=== PATIENT | male | born 1960 ===

== ENCOUNTER 2016-08-28 15:41 | Inpatient (IN) | payer MEDICARE ==
[2016-08-28] MEDS ORDERED: ZOFRAN IV ONE (17:39)
[2016-08-28] MEDS ORDERED: DILAUDID IV ONE (17:39)
[2016-08-28] MEDS ORDERED: NITRO-BID 2% TP ONE (17:40)
--- NOTE | 2016-08-28 17:55 | Emergency Department Report ---
ED Chest Pain HPI - General Chief Complaint: Chest Pain Stated Complaint: CHEST PAIN Time Seen by Provider: 08/28/16 17:28 Source: patient, EMS, old records reviewed (no previous ED record for review) Mode of arrival: Stretcher Limitations: No Limitations - History of Present Illness Initial Comments: 55-year-old male with a past medical history of diabetes, CAD with 8 stents, CABG 4, internal defibrillator, and hyperlipidemia presents to [place] with syncopal episode. Patient states he has had anterior chest pain intermittent throughout the day that was mild to moderate. While standing at [place] talking on the phone and a syncopal episode and bumped the left posterior part of his head on the ground. He complains of worsening chest pain since fall. Plan as aching, constant, reproducible with palpation. Positive so she shortness of breath without nausea, vomiting, or diaphoresis. Per [place] record it states patient has a history of DVT. Patient denies PE or DVT history but does take Coumadin and Plavix for his heart. All his physicians are located around [place] this is his first visit here. Patient is at [place] for psychosis with suicidal intent and just arrived today. Pt was voluntary - Related Data Home Medications Medication Instructions Recorded Confirmed Last Taken Amiodarone [Cordarone 200 MG TAB] 200 mg PO DAILY 08/28/16 08/28/16 08/28/16 Aspirin [Aspirin BABY CHEW TAB] 81 mg PO QDAY 08/28/16 08/28/16 08/28/16 AtorvaSTATin [Lipitor] 80 mg PO QHS 08/28/16 08/28/16 08/27/16 Carvedilol [Coreg] 3.125 mg PO DAILY 08/28/16 08/28/16 08/28/16 Clopidogrel Bisulfate [Plavix] 75 mg PO DAILY 08/28/16 08/28/16 08/28/16 Docusate Sodium [Colace] 100 mg PO DAILY 08/28/16 08/28/16 08/28/16 Furosemide [Lasix] 20 mg PO QDAY 08/28/16 08/28/16 08/28/16 Warfarin [Coumadin] 10 mg PO QDAY 08/28/16 08/28/16 08/28/16 Allergies Allergy/AdvReac Type Severity Reaction Status Date / Time No Known Allergies Allergy Unverified 08/28/16 17:20 ELIJAH score - Elijah Score Age > 65: (0) No Aspirin use within the Past 7 Days: (0) No 3 or more CAD Risk Factors: (1) Yes 2 or more Angina events in past 24 hrs: (1) Yes Known CAD with more than 50% Stenosis: (1) Yes Elevated Cardiac Markers: (0) No ST Deviation Greater than 0.5mm: (0) No ELIJAH Score: 3 ED Review of Systems ROS: Stated complaint: CHEST PAIN Other details as noted in HPI Comment: All other systems reviewed and negative Other: Constitutional: No fevers chills Eyes: No eye pain visual changes ENT: No ear pain or throat pain Neck: Denies pain Respiratory: Denies cough wheezing Cardiovascular: As per HPI GI: Denies abdominal pain, nausea, vomiting, diarrhea : Denies dysuria Musculoskeletal: Denies back pain Skin: Denies rash, lesions, erythema Neurologic: Denies headache, numbness, weakness Psychiatric: Denies suicidal ideation, hallucinations ED Past Medical Hx - Past Medical History Previous Medical History?: Yes Hx Heart Attack/AMI: Yes (stents x 8) Hx Diabetes: Yes - Surgical History Past Surgical History?: Yes Hx Coronary Stent: Yes Hx Internal Defibrillator: Yes Additional Surgical History: CABG - Social History Smoking Status: Current Every Day Smoker Substance Use Type: None - Medications Home Medications: Home Medications Medication Instructions Recorded Confirmed Last Taken Type Amiodarone [Cordarone 200 MG TAB] 200 mg PO DAILY 08/28/16 08/28/16 08/28/16 History Aspirin [Aspirin BABY CHEW TAB] 81 mg PO QDAY 08/28/16 08/28/16 08/28/16 History AtorvaSTATin [Lipitor] 80 mg PO QHS 08/28/16 08/28/16 08/27/16 History Carvedilol [Coreg] 3.125 mg PO DAILY 08/28/16 08/28/16 08/28/16 History Clopidogrel Bisulfate [Plavix] 75 mg PO DAILY 08/28/16 08/28/16 08/28/16 History Docusate Sodium [Colace] 100 mg PO DAILY 08/28/16 08/28/16 08/28/16 History Furosemide [Lasix] 20 mg PO QDAY 08/28/16 08/28/16 08/28/16 History Warfarin [Coumadin] 10 mg PO QDAY 08/28/16 08/28/1617 History ED Physical Exam - General Limitations: No Limitations - Other Other exam information: General: No limitations, patient is alert in no acute distress Head exam: Left posterior scalp pain without laceration or notable hematoma Eyes exam: Normal appearance, pupils equal reactive to light, extraocular movements intact ENT: Moist mucous membrane, normal oropharynx Neck exam: Normal inspection, full range of motion, no meningismus nontender Respiratory exam: Clear to auscultation bilateral, no wheezes, rales, crackles, sternotomy scar noted Cardiovascular: Normal rate and rhythm, normal heart sounds, reproducible anterior chest wall tenderness to palpation Abdomen: Soft, nondistended, and nontender, with normal bowel sounds, no rebound, or guarding Extremity: Full range of motion normal inspection no deformity, no calf tenderness or edema Back: Normal Inspection, full range of motion, no tenderness Neurologic: Alert, oriented x3, cranial nerves intact, no motor or sensory deficit Psychiatric: normal affect, normal mood Skin: Warm, dry, intact ED Course Vital Signs 08/28/16 08/28/16 08/28/16 17:15 17:20 18:15 Temperature Pulse Rate 71 70 67 Respiratory 20 18 20 Rate Blood Pressure 110/83 Blood Pressure 111/83 137/92 [Left] O2 Sat by Pulse 100 99 100 Oximetry 08/28/16 08/28/16 08/28/16 18:23 18:53 22:10 Temperature 98.2 F Pulse Rate 80 Respiratory 18 18 18 Rate Blood Pressure Blood Pressure 125/85 [Left] O2 Sat by Pulse 100 Oximetry - Reevaluation(s) Reevaluation #1: 08/28/16 22:04 tx with ntg, dilaudid 0.5, zofran ED Medical Decision Making - Lab Data Result diagrams: 08/28/16 18:22 08/28/16 18:22 Lab Results 08/28/16 08/28/16 08/28/16 Range/Units 18:22 18:22 18:22 WBC 11.4 H (4.5-11.0) K/mm3 RBC 4.96 (3.65-5.03) M/mm3 Hgb 14.7 (11.8-15.2) gm/dl Hct 43.9 (35.5-45.6) % MCV 88 (84-94) fl MCH 30 (28-32) pg MCHC 34 (32-34) % RDW 12.7 L (13.2-15.2) % Plt Count 264 (140-440) K/mm3 Lymph % (Auto) 12.9 L (13.4-35.0) % [place] % (Auto) 6.8 (0.0-7.3) % Eos % (Auto) 0.8 (0.0-4.3) % Baso % (Auto) 0.4 (0.0-1.8) % Lymph # 1.5 (1.2-5.4) K/mm3 [place] # 0.8 (0.0-0.8) K/mm3 Eos # 0.1 (0.0-0.4) K/mm3 Baso # 0.0 (0.0-0.1) K/mm3 Seg Neutrophils % 79.1 H (40.0-70.0) % Seg Neutrophils # 9.0 H (1.8-7.7) K/mm3 PT 17.7 H (12.2-14.9) Sec. INR 1.46 H (0.87-1.13) APTT 27.6 (24.2-36.6) Sec. D-Dimer 402.65 H (0-234) ng/mlDDU Sodium 136 L (137-145) mmol/L Potassium 4.0 (3.6-5.0) mmol/L Chloride 94.2 L (98-107) mmol/L Carbon Dioxide 25 (22-30) mmol/L Anion Gap 21 mmol/L BUN 21 H (9-20) mg/dL Creatinine 1.1 (0.8-1.5) mg/dL Estimated GFR > 60 ml/min BUN/Creatinine Ratio 19.09 % Glucose 74 L (75-100) mg/dL Calcium 9.6 (8.4-10.2) mg/dL Total Creatine Kinase (55-170) units/L CK-MB (CK-2) (0.0-4.0) ng/mL CK-MB (CK-2) Rel Index (0-4) Troponin T < 0.010 (0.00-0.029) ng/mL 08/28/16 Range/Units 18:22 WBC (4.5-11.0) K/mm3 RBC (3.65-5.03) M/mm3 Hgb (11.8-15.2) gm/dl Hct (35.5-45.6) % MCV (84-94) fl MCH (28-32) pg MCHC (32-34) % RDW (13.2-15.2) % Plt Count (140-440) K/mm3 Lymph % (Auto) (13.4-35.0) % [place] % (Auto) (0.0-7.3) % Eos % (Auto) (0.0-4.3) % Baso % (Auto) (0.0-1.8) % Lymph # (1.2-5.4) K/mm3 [place] # (0.0-0.8) K/mm3 Eos # (0.0-0.4) K/mm3 Baso # (0.0-0.1) K/mm3 Seg Neutrophils % (40.0-70.0) % Seg Neutrophils # (1.8-7.7) K/mm3 PT (12.2-14.9) Sec. INR (0.87-1.13) APTT (24.2-36.6) Sec. D-Dimer (0-234) ng/mlDDU Sodium (137-145) mmol/L Potassium (3.6-5.0) mmol/L Chloride (98-107) mmol/L Carbon Dioxide (22-30) mmol/L Anion Gap mmol/L BUN (9-20) mg/dL Creatinine (0.8-1.5) mg/dL Estimated GFR ml/min BUN/Creatinine Ratio % Glucose (75-100) mg/dL Calcium (8.4-10.2) mg/dL Total Creatine Kinase 97 (55-170) units/L CK-MB (CK-2) 3.5 (0.0-4.0) ng/mL CK-MB (CK-2) Rel Index 3.6 (0-4) Troponin T (0.00-0.029) ng/mL - EKG Data -: EKG Interpreted by Me (nsr 62, septal q waves) - EKG Data When compared to previous EKG there are: previous EKG unavailable - Radiology Data Radiology results: report reviewed, image reviewed ct Head: naf ct Chest angio: naf - Medical Decision Making Pain is reproducible but pt has significant cardiac hx with syncope today. Will admit for further workup. NO stemi, no PE, neg enzymes - Differential Diagnosis mi, pe, unstable angina, chest wall pain Critical Care Time: No Critical care attestation.: If time is entered above; I have spent that time in minutes in the direct care of this critically ill patient, excluding procedure time. ED Disposition Clinical Impression: Hx of heart artery stent, Hx of CABG, Subtherapeutic international normalized ratio (INR), Psychoses Syncope Qualifiers: Syncope type: unspecified Qualified Code(s): R55 - Syncope and collapse Chest pain Qualifiers: Chest pain type: unspecified Qualified Code(s): R07.9 - Chest pain, unspecified Disposition: OP ADMITTED IP TO THIS HOSP Is pt being admited?: Yes Condition: Stable Time of Disposition: 22:00 (Dr Reza/hosp)
--- NOTE | 2016-08-28 18:26 | Cat Scan Report ---
FINAL REPORT PROCEDURE: CT head without contrast. TECHNIQUE: Computerized tomography of the head was performed without contrast material. HISTORY: Syncope, head injury, taking Coumadin. COMPARISON: No prior studies are available for comparison. FINDINGS: The ventricles are normal in size. There may be a tiny old lacunar infarct in the head of the right caudate nucleus. The oro matter and white matter are otherwise normal. There are no mass lesions. There is no intracranial hemorrhage. There are no signs of acute infarction. The calvarium appears intact. There is partial opacification of the left mastoid air cells. The visualized paranasal sinuses are clear. IMPRESSION: No significant abnormality of the brain. Left mastoiditis.
[2016-08-28 18:46] LABS: Basophils % (Auto) 0.4 % (0.0-1.8); Eosinophils % (Auto) 0.8 % (0.0-4.3); Hematocrit 43.9 % (35.5-45.6); Hemoglobin 14.7 gm/dl (11.8-15.2); Mean Corpuscular HGB Conc 34 % (32-34); Mean Corpuscular Hemoglobin 30 pg (28-32); Mean Corpuscular Volume 88 fl (84-94); Platelet Count 264 K/mm3 (140-440); Red Blood Count 4.96 M/mm3 (3.65-5.03); Red Cell Distribution Width 12.7 % (13.2-15.2); White Blood Count 11.4 K/mm3 (4.5-11.0)
[2016-08-28 18:57] LABS: INR 1.46 (0.87-1.13)
[2016-08-28 18:58] LABS: Partial Thromboplastin Time 27.6 Sec. (24.2-36.6)
[2016-08-28 19:00] LABS: BUN/Creatinine Ratio 19.09; Blood Urea Nitrogen 21 mg/dL (9-20); Calcium 9.6 mg/dL (8.4-10.2); Carbon Dioxide 25 mmol/L (22-30); Glucose 74 mg/dL (75-100)
[2016-08-28 19:01] LABS: Anion Gap 21 mmol/L; Chloride 94.2 mmol/L (98-107); Creatine Kinase MB 3.5 ng/mL (0.0-4.0); Sodium 136 mmol/L (137-145)
[2016-08-28] MEDS ORDERED: NACL ONE (20:52)
--- NOTE | 2016-08-28 21:53 | Cat Scan Report ---
FINAL REPORT PROCEDURE: CT angiogram chest. TECHNIQUE: Computerized tomographic angiography of the chest was performed after the IV injection of iodinated nonionic contrast including image processing. The image data was postprocessed using 2-dimensional multiplanar reformatted (MPR) and 3-dimensional (MIP and/or volume rendered) techniques. HISTORY: Chest pain, elevated D-dimer. COMPARISON: No prior studies are available for comparison. FINDINGS: The trachea and central bronchi appear normal. The thoracic aorta has a normal caliber without evidence of dissection. The pulmonary arteries enhance normally. There are no filling defects to indicate pulmonary embolism. There is no mediastinal adenopathy. The heart size is normal. There are no pleural effusions. The lungs are clear and well expanded. The thoracic skeleton appears intact. Median sternotomy wires are present. There is a right-sided pacemaker. IMPRESSION: No evidence of pulmonary embolism.
--- NOTE | 2016-08-28 22:40 | Admit Criteria Form ---
Admission Criteria Documentation: CHEST PAIN Clinical Indications for Admission to Inpatient Care (Place 'X' for any and all applicable criteria): Admission is indicated for chest pain and ANY ONE of the following(1)(2)(3)(4)(5 ): [ ]I. Angina with acute coronary syndrome (Also use Myocardial Infarction or Angina guideline) [ ]II. Hemodynamic instability [ ]III. Angina needing acute intervention as indicated by ALL of the following( 11)(12): [ ]a) Unstable angina is present as indicated by angina that is ANY ONE of the following: [ ]i) New onset [ ]ii) Nocturnal [ ]iii) Prolonged at rest [ ]iv) Progressive [ ]b) Angina warrants acute intervention as indicated by ANY ONE of the following: [ ]i) Recurrent angina (e.g, not responding as previously to treatment) [ ]ii) Angina at rest or with low-level activities despite initial medical therapy [ ]iii) New or presumably new ST-segment depression on ECG [ ]iv) Signs or symptoms of heart failure (eg, dyspnea, pulmonary edema) [ ]v) New or worsening mitral regurgitation [ ]vi) Hemodynamic instability [ ]vii) Dangerous arrhythmia (eg, sustained ventricular tachycardia) [ ]viii) History of percutaneous coronary intervention within 6 months [ ]ix) History of coronary artery bypass graft surgery [ ]x) ELIJAH risk score of 2 or greater[A] [ ]xi) History of Diabetes(14) [ ]xii) High-risk cardiac ischemia findings on noninvasive testing (e.g, echocardiogram, treadmill testing, nuclear scan) [ ]xiii) Chronic renal insufficiency (ie, estimated GFR less than 60 mL/min/1.732m) [ ]xiv) Left ventricular ejection fraction less than 40% [ ]IV. Evidence of [place] (eg, cardiac biomarkers positive, ST-segment elevation on ECG) also use Myocardial Infarction Criteria Form. [ ]V. Pulmonary edema [ ]. Respiratory distress [ ]VII. Chest pain indicative of serious diagnosis other than coronary artery disease (eg, aortic dissection) [X ]VIII. Contraindications and/or Inappropriate clinical situations for Observational Care in patients with Chest Pain, when ANY ONE of the following is required: [ ]a) Patient with risk factor for pulmonary embolism, acute coronary syndrome and myocardial infarction (18) [ ]b) Patient with Pulmonary embolism require an average LOS of 4.3 days, therefore emergency department observation management is inappropriate 18,23 [ ]c) Painful condition/s in the elderly, have the highest rate of recidivism after emergency department observation management (10.8%) 20,21,22 [X ]d) Elevated cardiac biomarker requires intensive and exhaustive care (19) [X ]IX. General contraindications and/or Inappropriate clinical situations for Observational Care in patients with Chest Pain, when ANY ONE of the following is required: [ ]a) Prediction of prolongation of LOS based on ANY ONE of the following may be considered as a contraindication for observational care 2, 3, 4, 5, 6, 7, 8, 9, 10, 11 [ ]i) Age > 65 yrs. [ ]ii) Patient arriving by ambulance [ ]iii) Patient with high acuity [ ]iv) Patient requiring vital sign monitoring [ ]v) Patient on IV medication [ ]b) Systolic blood pressures 180mmHg 3,12 [ X]c) Patient with altered mental status including delirium and other alteration of consciousness, (3) [ ]d) Patient whose discharge disposition will be to a [facility] home or rehabilitation home should not be managed in Emergency Department Observation Unit. CMS rule requires 3 days hospital stay before such placement. 3,13 [ ]e) Patient with failure to thrive due to broad array of etiologies 3,16,17 [ ]f) Inability to ambulate 3,14 Extended stay beyond goal length of stay may be needed for (1)(28): [ ]a) Specific condition diagnosed after evaluation (eg, pulmonary embolism, aortic dissection) [ ]b) Unstable angina [ ]c) Continued suspicion of acute coronary syndrome with inability to complete needed cardiac evaluation (eg, patient clinically unable to undergo stress testing) [ ]d) Myocardial infarction (Contents from ANGINA and CHEST PAIN clinical indications for admission to inpatient care have been integrated in this form) The original [employer] content created by [employer] has been revised. The portions of the content which have been revised are identified through the use of italic text or in bold, and [facility] has neither reviewed nor approved the modified material. All other unmodified content is copyright [employer]. Please see references footnoted in the original [facility] edition 2016 Admission Criteria Met: Yes
[2016-08-28] MEDS ORDERED: XANAX ONE (23:00)
[2016-08-28] MEDS ORDERED: XANAX PO ONE (23:01)
--- NOTE | 2016-08-28 23:18 | History and Physical Report ---
History of Present Illness Date of examination: 08/28/16 Date of admission: 08/28/16 22:02 Chief complaint: chest pain History of present illness: 5-year-old male with a past medical history of diabetes, CAD with 8 stents, CABG 4, defibrillator and hyperlipidemia who presents from [place] with syncopal episode. Patient states he has had anterior chest pain intermittently throughout the day that was mild to moderate. While standing at [place] talking on the phone, he had a syncopal episode and bumped the left posterior part of his head on the ground. He complains of worsening chest pain since fall. He does report that it was witnessed. He did have loss of consciousness but no reports of seizure activity. pain is described as aching, constant and is reproducible with palpation. He also reports shortness of breath without nausea , vomiting, or diaphoresis. Per [place] record, he states patient has a history of DVT. Patient denies PE or DVT history but does take Coumadin and Plavix for his heart. Patient reports that his electrotyper, Dr. Tolbert, is in [facility]. He states he did have a recent cardiac evaluation approximately 3 months ago with a stress test. Patient is at [place] for psychosis with suicidal intent and just arrived today. Past History Past Medical History: CAD, diabetes, hyperlipidemia Past Surgical History: Other (defibrillator) Social history: no significant social history Family history: no significant family history Medications and Allergies Allergies Allergy/AdvReac Type Severity Reaction Status Date / Time No Known Allergies Allergy Unverified 08/28/16 17:20 Home Medications Medication Instructions Recorded Confirmed Last Taken Type Amiodarone [Cordarone 200 MG TAB] 200 mg PO DAILY 08/28/16 08/28/16 08/28/16 History Aspirin [Aspirin BABY CHEW TAB] 81 mg PO QDAY 08/28/16 08/28/16 08/28/16 History AtorvaSTATin [Lipitor] 80 mg PO QHS 08/28/16 08/28/16 08/27/16 History Carvedilol [Coreg] 3.125 mg PO DAILY 08/28/16 08/28/16 08/28/16 History Clopidogrel Bisulfate [Plavix] 75 mg PO DAILY 08/28/16 08/28/16 08/28/16 History Docusate Sodium [Colace] 100 mg PO DAILY 08/28/16 08/28/16 08/28/16 History Furosemide [Lasix] 20 mg PO QDAY 08/28/16 08/28/16 08/28/16 History Warfarin [Coumadin] 10 mg PO QDAY 08/28/16 08/28/16 08/28/16 History Review of Systems All systems: negative Exam - Constitutional Vitals: Temp Pulse Resp BP Pulse Ox 98.2 F 80 18 125/85 100 08/28/16 22:10 08/28/16 22:10 08/28/16 22:10 08/28/16 22:10 08/28/16 22:10 General appearance: Present: no acute distress, well-nourished - EENT Eyes: Present: PERRL ENT: hearing intact, clear oral mucosa - Neck Neck: Present: supple, normal ROM - Respiratory Respiratory effort: normal Respiratory: bilateral: CTA - Cardiovascular Heart Sounds: Present: S1 & S2. Absent: rub, click - Extremities Extremities: pulses symmetrical, No edema Peripheral Pulses: within normal limits - Abdominal General gastrointestinal: Present: soft, non-tender, non-distended, normal bowel sounds Male genitourinary: Present: normal - Integumentary Integumentary: Present: clear, warm, dry - Musculoskeletal Musculoskeletal: gait normal, strength equal bilaterally - Psychiatric Psychiatric: appropriate mood/affect, intact judgment & insight - Neurologic Neurologic: CNII-XII intact, moves all extremities Results - Labs CBC & Chem 7: 08/28/16 18:22 08/28/16 18:22 Labs: Laboratory Last Values WBC 11.4 K/mm3 (4.5-11.0) H 08/28/16 18:22 RBC 4.96 M/mm3 (3.65-5.03) 08/28/16 18:22 Hgb 14.7 gm/dl (11.8-15.2) 08/28/16 18:22 Hct 43.9 % (35.5-45.6) 08/28/16 18:22 MCV 88 fl (84-94) 08/28/16 18:22 MCH 30 pg (28-32) 08/28/16 18:22 MCHC 34 % (32-34) 08/28/16 18:22 RDW 12.7 % (13.2-15.2) L 08/28/16 18:22 Plt Count 264 K/mm3 (140-440) 08/28/16 18:22 Lymph % (Auto) 12.9 % (13.4-35.0) L 08/28/16 18:22 [place] % (Auto) 6.8 % (0.0-7.3) 08/28/16 18:22 Eos % (Auto) 0.8 % (0.0-4.3) 08/28/16 18:22 Baso % (Auto) 0.4 % (0.0-1.8) 08/28/16 18:22 Lymph # 1.5 K/mm3 (1.2-5.4) 08/28/16 18:22 [place] # 0.8 K/mm3 (0.0-0.8) 08/28/16 18:22 Eos # 0.1 K/mm3 (0.0-0.4) 08/28/16 18: Baso # 0.0 K/mm3 (0.0-0.1) 08/28/16 18:22 Seg Neutrophils % 79.1 % (40.0-70.0) H 08/28/16 18:22 Seg Neutrophils # 9.0 K/mm3 (1.8-7.7) H 08/28/16 18:22 PT 17.7 Sec. (12.2-14.9) H 08/28/16 18:22 INR 1.46 (0.87-1.13) H 08/28/16 18:22 APTT 27.6 Sec. (24.2-36.6) 08/28/16 18:22 D-Dimer 402.65 ng/mlDDU (0-234) H 08/28/16 18:22 Sodium 136 mmol/L (137-145) L 08/28/16 18:22 Potassium 4.0 mmol/L (3.6-5.0) 08/28/16 18:22 Chloride 94.2 mmol/L (98-107) L 08/28/16 18:22 Carbon Dioxide 25 mmol/L (22-30) 08/28/16 18:22 Anion Gap 21 mmol/L 08/28/16 18:22 BUN 21 mg/dL (9-20) H 08/28/16 18:22 Creatinine 1.1 mg/dL (0.8-1.5) 08/28/16 18:22 Estimated GFR > 60 ml/min 08/28/16 18:22 BUN/Creatinine Ratio 19.09 % 08/28/16 18:22 Glucose 74 mg/dL (75-100) L 08/28/16 18: Calcium 9.6 mg/dL (8.4-10.2) 08/28/16 18:22 Total Creatine Kinase 97 units/L (55-170) 08/28/16 18:22 CK-MB (CK-2) 3.5 ng/mL (0.0-4.0) 08/28/16 18:22 CK-MB (CK-2) Rel Index 3.6 (0-4) 08/28/16 18: Troponin T < 0.010 ng/mL (0.00-0.029) 08/28/16 18:22 Assessment and Plan Assessment and plan: 1. Chest pain. Patient will be placed on the chest pain pathway. Patient does have significant cardiac history. We will obtain cardiac isoenzymes every 8 hours 3. Cardiology consultation. I will reserve the decision for stress thallium versus catheterization per cardiology given the reported recent history of cardiac evaluation 3 months ago. We will attempt to obtain old records from his electrotyper, Dr. Tolbert, and [facility]. 2. Syncope. Given the episode associated with chest pain, CTA was ordered. CTA was negative. Check echocardiogram and carotid ultrasound. 3. Acute psychosis. Follow-up with mental health when stable. 4. Diabetes mellitus type 2. Accu-Cheks and sliding scale regular. 5. Hyperlipidemia. Resume medications. 6. DVT prophylaxis. Lovenox daily.
[2016-08-28] MEDS ORDERED: TYLENOL PO PRN (23:23)
[2016-08-28] MEDS ORDERED: D50W (25GM) IV PRN (23:23)
[2016-08-28] MEDS ORDERED: SODIUM CHLORIDE FLUSH SYRINGE 10 ML IV PRN (23:23)
[2016-08-28] MEDS ORDERED: MILK OF MAGNESIA PO PRN (23:23)
[2016-08-28] MEDS ORDERED: ZOFRAN IV PRN (23:23)
[2016-08-28] MEDS ORDERED: DULCOLAX PR PRN (23:23)
[2016-08-28] MEDS ORDERED: NACL 0.9% 1000 ML 1,000 ML IV SCH (23:45)
[2016-08-29 00:18] LABS: Creatine Kinase MB 3.3 ng/mL (0.0-4.0)
[2016-08-29 00:22] LABS: Creatine Kinase 114 units/L (55-170)
[2016-08-29] MEDS: MORPHINE IV PRN ×2 (03:22→19:02)
[2016-08-29 06:05] LABS: Basophils % (Auto) 0.4 % (0.0-1.8); Eosinophils % (Auto) 2.7 % (0.0-4.3); Mean Corpuscular HGB Conc 33 % (32-34); Mean Corpuscular Hemoglobin 30 pg (28-32); Mean Corpuscular Volume 89 fl (84-94); Platelet Count 200 K/mm3 (140-440); Red Blood Count 4.39 M/mm3 (3.65-5.03); Red Cell Distribution Width 12.9 % (13.2-15.2); White Blood Count 6.6 K/mm3 (4.5-11.0)
[2016-08-29 06:18] LABS: Blood Urea Nitrogen 18 mg/dL (9-20); Calcium 8.8 mg/dL (8.4-10.2); Carbon Dioxide 25 mmol/L (22-30); Chloride 98.9 mmol/L (98-107); Glucose 286 mg/dL (75-100); Potassium 3.9 mmol/L (3.6-5.0); Sodium 139 mmol/L (137-145)
[2016-08-29 06:19] LABS: Anion Gap 19 mmol/L; Creatine Kinase MB 3.6 ng/mL (0.0-4.0)
[2016-08-29 06:26] LABS: Creatine Kinase 103 units/L (55-170)
--- NOTE | 2016-08-29 09:48 | XRay Report ---
SINGLE VIEW CHEST: HISTORY: Chest pain, syncope. FINDINGS: Normal cardiomediastinal silhouette. Trachea is midline. No consolidation, pneumothorax or pleural effusion. Stable pacemaker. IMPRESSION: No acute cardiopulmonary findings.
[2016-08-29] MEDS ORDERED: LEXISCAN IV ONE ×2 (11:27→11:30)
--- NOTE | 2016-08-29 12:04 | Echocardiography Report ---
Transthoracic Echocardiogram Indication: SYNCOPE BP: 100/68 HR: 74 Conclusions *The left ventricular chamber size is mildly dilated. *Global left ventricular systolic function is moderately decreased. *The estimated ejection fraction is 30-35%. *The basal anteroseptal, and mid anteroseptal wall segments are akinetic. *The right ventricular global systolic function is moderately reduced. *A pacemaker wire is visualized in the right ventricle. *There is mild to moderate tricuspid regurgitation. Findings Procedure Info: The study quality is good. Left Ventricle: The left ventricular chamber size is mildly dilated. Global left ventricular systolic function is moderately decreased. The estimated ejection fraction is 30-35%. The basal anteroseptal, and mid anteroseptal wall segments are akinetic. Left Atrium: The left atrial chamber size is normal. Right Ventricle: The right ventricle wall thickness is mildly increased. The right ventricular cavity size is normal. The right ventricular global systolic function is moderately reduced. A pacemaker wire is visualized in the right ventricle. Right Atrium: The right atrial cavity size is normal. A pacemaker wire is visualized in the right atrium. Aortic Valve: The aortic valve is trileaflet. There is moderate thickening of the right coronary cusp. Systolic excursion of the aortic valve is normal. There is no evidence of aortic regurgitation. There is no evidence of aortic stenosis. The mean gradient of the aortic valve is 4 mmHg. Mitral Valve: The mitral valve leaflets appear normal. There is no evidence of mitral regurgitation. There is no evidence of mitral stenosis. Tricuspid Valve: The tricuspid valve leaflets are normal. Elongated chordae attached to the posterior tricuspid valve leaflet. PISA of TR = 0.6 cm indicating mild to moderate tricuspid regurgitation. There is mild to moderate tricuspid regurgitation. The tricuspid regurgitant jet is directed toward the RA free wall. Pulmonic Valve: The pulmonic valve is not well visualized. There is no evidence of pulmonic regurgitation. There is no pulmonic stenosis. Pericardium: There is no pericardial effusion. No pleural effusion is present. Venous: The inferior vena cava appears normal in size. There is a greater than 50% respiratory change in the inferior vena cava dimension. Contrast: Definity was used to optimize study. Intravenous contrast was used to enhance endocardial border definition. Measurements Chambers MM Name Value Normal Range IVSd (MM) 1 cm (0.6 - 1.1) LVPWd (MM) 1.17 cm (0.6 - 1.1) IVS:LVPW ratio 0.85 ratio - LVIDd (MM) 6.21 cm (3.7 - 5.6) LVIDs (MM) 5.02 cm (2 - 2.8) LV FS (Teichholz) (MM) 19.2 % - LV FS (cube) (MM) 19.2 % - EF Teichholz (MM) 39 % - Chambers 2D Name Value Normal Range IVSd (2D) 0.63 cm (0.6 - 1.1) LVPWd 1.1 cm - LVPWd (2D) 1.06 cm (0.6 - 1.1) IVS:LVPW ratio (2D) 0.6 ratio - LVIDd 5.74 cm - LVIDs 4.7 cm - LVIDd (2D) 5.74 cm (3.7 - 5.6) LVIDs (2D) 4.71 cm (2 - 3.8) LV FS (Teichholz) (2D) 17.9 % - LV FS (cube) (2D) 17.9 % - LV EF (2D) 36 % - EF Teichholz (2D) 36.8 % - LA dimension 2.6 cm - Ao root diameter (2D) 3.3 cm (2 - 3.7) LA dimension (AP) 2D 2.6 cm (1.9 - 4) LA:Ao ratio (2D) 0.79 ratio - Volumes/Mass Name Value Normal Range LA ESV SP 4CH (MOD) 31 ml - LV EDV SP 4CH (MOD) 161 ml - LV ESV SP 4CH (MOD) 106 ml - EF SP 4CH (MOD) 34 % - Diastolic/Systolic Function Name Value Normal Range MV E-wave Vmax 0.55 m/sec - MV deceleration time 222 msec - MV A-wave Vmax 0.93 m/sec - MV E:A ratio 0.6 ratio - LV septal e' Vmax 0.05 m/sec - LV lateral e' Vmax 0.07 m/sec - LV E:e' septal ratio 11.5 ratio - LV E:e' lateral ratio 7.6 ratio - Aortic Valve Name Value Normal Range AV VTI 22 cm - AV mean gradient 4 mmHg - LVOT diameter 2.2 cm - LVOT Vmax 0.59 m/sec - LVOT VTI 9.59 cm - LVOT peak gradient 1 mmHg - LVOT mean gradient 1 mmHg - SV LVOT 36 ml - NIRANJAN (continuity VTI) 1.66 cm2 - Tricuspid Valve Name Value Normal Range TR Vmax 2.3 m/sec - TR peak gradient 21 mmHg - Pulmonic Valve/Qp:Qs Name Value Normal Range PV Vmax 0.8 m/sec - PV peak gradient 3 mmHg - PV acceleration time 172 msec - Wallmotion BAS Akinetic BA Not Seen BAL Not Seen ABNER Not Seen BI Not Seen BIS Not Seen MAS Akinetic MA Not Seen MAL Not Seen MIL Not Seen CT Not Seen MIS Not Seen Not Seen AA Not Seen AL Not Seen AI Not Seen APEX Not Seen
--- NOTE | 2016-08-29 12:49 | Consultation ---
History of Present Illness Consult date: 08/29/16 Consult reason: syncope History of present illness: 55 year old male with extensive cardiac history presenting after a syncopal episode. Patient was standing and talking on the phone when he blacked out. He denies prodromal symptoms. He denies getting shocked by his device. He follows with cardiology in [facility]. No medical records are available. He denies chest pain or shortness of breath. Past History Past Medical History: CAD, diabetes, hyperlipidemia Past Surgical History: Other (defibrillator) Social history: no significant social history Family history: no significant family history Medications and Allergies Allergies Allergy/AdvReac Type Severity Reaction Status Date / Time No Known Allergies Allergy Unverified 08/28/16 17:20 Home Medications Medication Instructions Recorded Confirmed Last Taken Type Amiodarone [Cordarone 200 MG TAB] 200 mg PO DAILY 08/28/16 08/28/16 08/28/16 History Aspirin [Aspirin BABY CHEW TAB] 81 mg PO QDAY 08/28/16 08/28/16 08/28/16 History AtorvaSTATin [Lipitor] 80 mg PO QHS 08/28/16 08/28/16 08/27/16 History Carvedilol [Coreg] 3.125 mg PO DAILY 08/28/16 08/28/16 08/28/16 History Clopidogrel Bisulfate [Plavix] 75 mg PO DAILY 08/28/16 08/28/16 08/28/16 History Docusate Sodium [Colace] 100 mg PO DAILY 08/28/16 08/28/16 08/28/16 History Furosemide [Lasix] 20 mg PO QDAY 08/28/16 08/28/16 08/28/16 History Warfarin [Coumadin] 10 mg PO QDAY 08/28/16 08/28/16 08/28/16 History Active Meds: Active Medications Acetaminophen (Tylenol) 650 mg PO Q4H PRN PRN Reason: Pain MILD(1-3)/Fever >100.5/ROACH Bisacodyl (Dulcolax) 10 mg MT QDAY PRN PRN Reason: Constipation unrelieved by MOM Dextrose (D50w (25gm)) 50 ml IV PRN PRN PRN Reason: Hypoglycemia Enoxaparin Sodium (Lovenox) 40 mg SUB-Q QDAY NIDA Famotidine (Pepcid) 20 mg PO BID NIDA Sodium Chloride (Nacl 0.9% 1000 Ml) 1,000 mls @ 75 mls/hr IV DIRECT NIDA Insulin Human Regular (Novolin R) 0 units SUB-Q ACHS NIDA PRN Reason: Protocol Last Admin: 08/29/16 11:44 Dose: Not Given Magnesium Hydroxide (Milk Of Magnesia) 30 ml PO Q4H PRN PRN Reason: Constipation Morphine Sulfate (Morphine) 1 mg IV Q4H PRN PRN Reason: Pain, Moderate (4-6) Last Admin: 08/29/16 03:22 Dose: 1 mg Ondansetron HCl (Zofran) 4 mg IV Q8H PRN PRN Reason: N/V unrelieved by Reglan Sodium Chloride (Sodium Chloride Flush Syringe 10 Ml) 10 ml IV PRN PRN PRN Reason: LINE FLUSH Review of Systems All systems: negative Physical Examination Vital Signs Pulse Resp BP Pulse Ox 71 20 110/83 100 08/28/16 17:15 08/28/16 17:15 08/28/16 17:15 08/28/16 17:15 General appearance: no acute distress HEENT: Positive: PERRL Neck: Positive: neck supple Cardiac: Positive: Reg Rate and Rhythm Lungs: Positive: Normal Exam Neuro: Positive: Grossly Intact Abdomen: Positive: Soft Extremities: Absent: edema Results 08/29/16 05:08 08/29/16 05:08 Cardiac Enzymes 08/28/16 08/29/16 Range/Units 23:40 05:08 CK-MB (CK-2) 3.3 3.6 (0.0-4.0) ng/mL CBC 08/29/16 Range/Units 05:08 WBC 6.6 (4.5-11.0) K/mm3 RBC 4.39 (3.65-5.03) M/mm3 Hgb 13.0 (11.8-15.2) gm/dl Hct 39.0 (35.5-45.6) % Plt Count 200 (140-440) K/mm3 Lymph # 2.0 (1.2-5.4) K/mm3 [place] # 0.6 (0.0-0.8) K/mm3 Eos # 0.2 (0.0-0.4) K/mm3 Baso # 0.0 (0.0-0.1) K/mm3 Comprehensive Metabolic Panel 08/29/16 Range/Units 05:08 Sodium 139 (137-145) mmol/L Potassium 3.9 (3.6-5.0) mmol/L Chloride 98.9 (98-107) mmol/L Carbon Dioxide 25 (22-30) mmol/L BUN 18 (9-20) mg/dL Creatinine 1.0 (0.8-1.5) mg/dL Glucose 286 H (75-100) mg/dL Calcium 8.8 (8.4-10.2) mg/dL Assessment and Plan Syncope - reason for admission No events recorded on tele Ischemic cardiomyopathy, LVEF 30-35% 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 CAD s/p CABG (no records available) MPI today - large fixed anterior, anteroseptal, apical, apical and mid inferior wall defect consistent with a prior [place] in the PAD distribution, LVEF 35 % no ischemia noted Type II DM senior living use of anticoagulant Not sure why patient is on warfarin He states that he started warfarin at the time of his CABG Echo today with definity is not showing an intracardiac thrombus Recommendations: HF and CAD therapy with BB, JAGUAR, aldosterone, plavix, lipitor Resume coumadin therapy Device interrogation once career information specialist is known No further cardiac intervention is needed
[2016-08-29] MEDS: LOVENOX SUB-Q SCH (13:24)
[2016-08-29] MEDS: PEPCID PO SCH ×2 (13:24→22:59)
--- NOTE | 2016-08-29 13:28 | Progress Note ---
Assessment and Plan Assessment and plan: 55-year-old male with a past medical history of diabetes, CAD with 8 stents, CABG 4, defibrillator and hyperlipidemia who presents from [place] with syncopal episode. Patient states he has had anterior chest pain intermittently throughout the day that was mild to moderate. While standing at [place] talking on the phone, he had a syncopal episode and bumped the left posterior part of his head on the ground. He complains of worsening chest pain since fall. He does report that it was witnessed. He did have loss of consciousness but no reports of seizure activity. pain is described as aching, constant and is reproducible with palpation. He also reports shortness of breath without nausea , vomiting, or diaphoresis. Per [place] record, he states patient has a history of DVT. Patient denies PE or DVT history but does take Coumadin and Plavix for his heart. 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 He states he did have a recent cardiac evaluation approximately 3 months ago with a stress test. Patient is at [place] for psychosis with suicidal intent just arrived to being sent to the hospital 1. Chest pain. He typically nature likely costochondritis, await device interogation stress test today shows large fixed anterior, anteroseptal, apical, apical and mid inferior wall defect consistent with a prior [place] in the PAD distribution, LVEF 35% no ischemia noted 2. Syncope. Brain imgaing negative. likely vasovagal 3. Acute psychosis. Follow-up with mental health when stable. 4. Diabetes mellitus type 2. Accu-Cheks and sliding scale regular. 5. Hyperlipidemia. Resume medications. 6. DVT prophylaxis. Lovenox daily. d History Interval history: Follow-up chest pain Patient seen and examined this morning in no acute distress Denies any chest pain, nausea, vomiting, diarrhea No fever noted blood pressure controlled No adverse events reported to me by nursing staff Hospitalist Physical - Physical exam Narrative exam: VITAL SIGNS: Reviewed. GENERAL: The patient appeared well nourished and normally developed. Vital signs as documented. HEAD: No signs of head trauma. EYES: Pupils are equal. Extraocular motions intact. EARS: Hearing grossly intact. MOUTH: Oropharynx is normal. NECK: No adenopathy, no JVD. CHEST: Chest with clear breath sounds bilaterally. No wheezes, rales, or rhonchi. CARDIAC: Regular rate and rhythm. S1 and S2, without murmurs, gallops, or rubs. VASCULAR: No Edema. Peripheral pulses normal and equal in all extremities. ABDOMEN: Soft, without detectable tenderness. No sign of distention. No rebound or guarding, and no masses palpated. Bowel Sounds normal. MUSCULOSKELETAL: Good range of motion of all major joints. Extremities without clubbing, cyanosis or edema. NEUROLOGIC EXAM: Alert and oriented x 3. No focal sensory or strength deficits. Speech normal. Follows commands. PSYCHIATRIC: Mood normal. SKIN: Skin excoriations chronic. - Constitutional Vitals: Temp Pulse Resp BP Pulse Ox 97.7 F 82 18 89/64 97 08/29/16 08:27 08/29/16 11:46 08/29/16 08:27 08/29/16 11:46 08/29/16 08:27 General appearance: Present: no acute distress Results - Labs CBC & Chem 7: 08/29/16 05:08 08/29/16 05:08 Labs: Laboratory Last Values WBC 6.6 K/mm3 (4.5-11.0) 08/29/16 05:08 RBC 4.39 M/mm3 (3.65-5.03) 08/29/16 05:08 Hgb 13.0 gm/dl (11.8-15.2) 08/29/16 05:08 Hct 39.0 % (35.5-45.6) 08/29/16 05:08 MCV 89 fl (84-94) 08/29/16 05:08 MCH 30 pg (28-32) 08/29/16 05:08 MCHC 33 % (32-34) 08/29/16 05:08 RDW 12.9 % (13.2-15.2) L 08/29/16 05:08 Plt Count 200 K/mm3 (140-440) 08/29/16 05:08 Lymph % (Auto) 29.8 % (13.4-35.0) 08/29/16 05:08 [place] % (Auto) 9.0 % (0.0-7.3) H 08/29/16 05:08 Eos % (Auto) 2.7 % (0.0-4.3) 08/29/16 05:08 Baso % (Auto) 0.4 % (0.0-1.8) 08/29/16 05:08 Lymph # 2.0 K/mm3 (1.2-5.4) 08/29/16 05:08 [place] # 0.6 K/mm3 (0.0-0.8) 08/29/16 05:08 Eos # 0.2 K/mm3 (0.0-0.4) 08/29/16 05:08 Baso # 0.0 K/mm3 (0.0-0.1) 08/29/16 05:08 Seg Neutrophils % 58.1 % (40.0-70.0) 08/29/16 05:08 Seg Neutrophils # 3.8 K/mm3 (1.8-7.7) 08/29/16 05:08 PT 17.7 Sec. (12.2-14.9) H 08/28/16 18:22 INR 1.46 (0.87-1.13) H 08/28/16 18:22 APTT 27.6 Sec. (24.2-36.6) 08/28/16 18:22 D-Dimer 402.65 ng/mlDDU (0-234) H 08/28/16 18:22 Sodium 139 mmol/L (137-145) 08/29/16 05:08 Potassium 3.9 mmol/L (3.6-5.0) 08/29/16 05:08 Chloride 98.9 mmol/L (98-107) 08/29/16 05:08 Carbon Dioxide 25 mmol/L (22-30) 08/29/16 05:08 Anion Gap 19 mmol/L 08/29/16 05:08 BUN 18 mg/dL (9-20) 08/29/16 05:08 Creatinine 1.0 mg/dL (0.8-1.5) 08/29/16 05:08 Estimated GFR > 60 ml/min 08/29/16 05:08 BUN/Creatinine Ratio 18.00 % 08/29/16 05:08 Glucose 286 mg/dL (75-100) H 08/29/16 05:08 Calcium 8.8 mg/dL (8.4-10.2) 08/29/16 05:08 Total Creatine Kinase 103 units/L (55-170) 08/29/16 05:08 CK-MB (CK-2) 3.6 ng/mL (0.0-4.0) 08/29/16 05:08 CK-MB (CK-2) Rel Index 3.4 (0-4) 08/29/16 05:08 Troponin T < 0.010 ng/mL (0.00-0.029) 08/29/16 05:08 - Imaging and Cardiology Chest x-ray: image reviewed (no acute pathology) Imaging and Cardiology: Echo 30-35% ejection fraction
[2016-08-29] MEDS: LASIX PO SCH (13:30)
[2016-08-29] MEDS: BABY ASPIRIN PO SCH (13:30)
[2016-08-29] MEDS: COUMADIN PO SCH (13:30)
[2016-08-29] MEDS: COREG PO SCH (13:30)
[2016-08-29] MEDS: PLAVIX PO SCH (13:58)
[2016-08-29] MEDS: CORDARONE PO SCH (13:59)
--- NOTE | 2016-08-29 14:42 | Discharge Summary ---
Providers - Providers Date of Admission: 08/28/16 22:02 Date of discharge: 08/29/16 Attending physician: MISAEL WORTHY MD 08/28/16 Consult to Cardiac Rehabilitation [CONS] Routine Reason For Exam: Phase I 08/28/16 23:23 Consult to Physician [CONS] Routine Consulting Provider: CHYNA JONES Reason For Exam: Place consult to:: Dr. Jones Notified:: Annetta PORTER Phone number called:: Was contact made?: Yes If yes, spoke with:: [facility]-answering service Time called:: 08:24 Primary care physician: [facility] Hospitalization Reason for admission: chest pain Condition: Stable Hospital course: 55-year-old male with a past medical history of diabetes, CAD with 8 stents, CABG 4, defibrillator and hyperlipidemia who presents from [place] with syncopal episode. Patient states he has had anterior chest pain intermittently throughout the day that was mild to moderate. While standing at [place] talking on the phone, he had a syncopal episode and bumped the left posterior part of his head on the ground. He complains of worsening chest pain since fall. He does report that it was witnessed. He did have loss of consciousness but no reports of seizure activity. pain is described as aching, constant and is reproducible with palpation. He also reports shortness of breath without nausea , vomiting, or diaphoresis. Per [facility] record, he states patient has a history of DVT. Patient denies PE or DVT history but does take Coumadin and Plavix for his heart. 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 He states he did have a recent cardiac evaluation approximately 3 months ago with a stress test. Patient is at [place] for psychosis with suicidal intent just arrived to being sent to the hospital. Patient on admission did go for stress test which revealed large fixed anterior, anteroseptal, apical, apical and mid inferior wall defect consistent with a prior [place] in the PAD distribution, LVEF 35% no ischemia noted, was sent by cardiology with recommendation for continued medical management as chest pain appears to be costochondritis and is reproducible. It has since resolved. There was an interrogation of the pacer which was unremarkable. He is to follow with cardiology and primary care physician outpatient. Discharge diagnosis 1. Chest pain. He typically nature likely costochondritis, 2. Vasovagal syncope 3. Acute psychosis. 4. Diabetes mellitus type 2. 5. Hyperlipidemia. 6. Suicidal ideation Disposition: DC/TX PSY HOSP/PSY UNIT Time spent for discharge: 35 mins Core Measure Documentation - Palliative Care Palliative Care/ Comfort Measures: Not Applicable - Core Measures Any of the following diagnoses?: none - VTE Discharge Requirements Deep Vein Thrombosis/Pulmonary Embolism Present on Admission: No Exam - Physical Exam Narrative exam: VITAL SIGNS: Reviewed. GENERAL: The patient appeared well nourished and normally developed. Vital signs as documented. HEAD: No signs of head trauma. EYES: Pupils are equal. Extraocular motions intact. EARS: Hearing grossly intact. MOUTH: Oropharynx is normal. NECK: No adenopathy, no JVD. CHEST: Chest with clear breath sounds bilaterally. No wheezes, rales, or rhonchi. CARDIAC: Regular rate and rhythm. S1 and S2, without murmurs, gallops, or rubs. VASCULAR: No Edema. Peripheral pulses normal and equal in all extremities. ABDOMEN: Soft, without detectable tenderness. No sign of distention. No rebound or guarding, and no masses palpated. Bowel Sounds normal. MUSCULOSKELETAL: Good range of motion of all major joints. Extremities without clubbing, cyanosis or edema. NEUROLOGIC EXAM: Alert and oriented x 3. No focal sensory or strength deficits. Speech normal. Follows commands. PSYCHIATRIC: Mood normal. SKIN: Skin excoriations chronic. - Constitutional Vitals: Temp Pulse Resp BP Pulse Ox 97.7 F 82 18 89/64 97 08/29/16 08:27 08/29/16 11:46 08/29/16 08:27 08/29/16 11:46 08/29/16 08:27 Plan Activity: advance as tolerated Diet: low fat Special Instructions: record daily BP diary Follow up with: ESSENCE MARTINO MD [Primary Care Provider] - 7 Days DOMINGA WHITE MD [Staff Physician] - 7 Days
--- NOTE | 2016-08-29 21:04 | Treadmill Report ---
INDICATION FOR PROCEDURE: Syncope. ORDERING PHYSICIAN: Fran Garcia MD FINDINGS: The left ventricular cavity is dilated. There is evidence of a large fixed anterior, anteroseptal, apical, apical and mid inferior wall defect consistent with a prior history of myocardial infarction in the LAD distribution. Gated wall imaging is also showing akinesis of the anterior and apical wall. The left ventricular ejection fraction is measured at 35%. CONCLUSION: 1. No scintigraphic evidence of myocardial ischemia. 2. Large fixed anterior, anteroseptal, apical, apical and mid inferior wall defect consistent with a prior history of myocardial infarction in the LAD distribution. 3. Dilated left ventricle with an ejection fraction measured at 35% and evidence of anterior wall akinesis. [facility]# [id number] MARYLU/ELLIOTT
[2016-08-29] MEDS ORDERED: MORPHINE IV ONE (23:00)
[2016-08-29] MEDS ORDERED: MORPHINE IV PRN (23:55)
[2016-08-30] MEDS ORDERED: NACL 0.9% 500 ML 500 ML IV ONE (01:50)
[2016-08-30] MEDS: COREG PO SCH (02:05)
[2016-08-30] MEDS: PERCOCET 5/325 PO PRN ×2 (03:48→09:50)
[2016-08-30] MEDS ORDERED: NACL 0.9% 1000 ML 1,000 ML IV SCH (04:00)
[2016-08-30] MEDS: CORDARONE PO SCH (09:40)
[2016-08-30] MEDS: PLAVIX PO SCH (09:40)
[2016-08-30] MEDS: LASIX PO SCH (09:40)
[2016-08-30] MEDS: COUMADIN PO SCH (09:40)
[2016-08-30] MEDS: PEPCID PO SCH (09:40)
[2016-08-30] MEDS: BABY ASPIRIN PO SCH (09:40)
[2016-08-30] MEDS: LOVENOX SUB-Q SCH (09:41)
--- NOTE | 2016-08-30 11:33 | Progress Note ---
Assessment and Plan Syncope - reason for admission No events recorded on tele ICD interrogation revealed normal function and no significant arrhythmias No significant myocardial ischemia based on MPI. Ischemic cardiomyopathy, LVEF 30-35% s/p [place] ICD CAD s/p CABG (no records available) MPI today - large fixed anterior, anteroseptal, apical, apical and mid inferior wall defect consistent with a prior [place] in the PDA distribution, LVEF 35 % no ischemia noted Type II DM emt intermediate use of anticoagulant Not sure why patient is on warfarin He states that he started warfarin at the time of his CABG Echo today with definity is not showing an intracardiac thrombus Recommendations: HF and CAD therapy with BB, JAGUAR, aldosterone, plavix, lipitor Resume coumadin therapy No further cardiac intervention is needed - will sign off. Please call with questions. Subjective Date of service: 08/30/16 Interval history: Continues to have intermittent atypical chest discomfort. Objective Vital Signs Temp Pulse Pulse Pulse Resp BP BP 08/30/16 09:57 08/30/16 09:06 97.6 F 68 20 90/54 08/30/16 03:18 64 08/30/16 02:05 66 82/57 08/30/16 01:40 66 08/30/16 01:30 97.9 F 64 18 08/29/16 22:35 08/29/16 22:00 08/29/16 21:10 97.9 F 65 18 08/29/16 18:18 97.2 F L 74 18 08/29/16 11:46 82 89/64 08/29/16 11:45 82 86/85 08/29/16 11:44 84 87/64 08/29/16 11:43 82 75/53 08/29/16 11:42 79 137/92 BP BP Pulse Ox 08/30/16 09:57 100 08/30/16 09:06 100 08/30/16 03:18 08/30/16 02:05 08/30/16 01:40 82/57 08/30/16 01:30 81/57 100 08/29/16 22:35 98 08/29/16 22:00 100 08/29/16 21:10 129/87 08/29/16 18:18 90/61 95 08/29/16 11:46 08/29/16 11:45 08/29/16 11:44 08/29/16 11:43 08/29/16 11:42 - Physical Examination HEENT: Positive: PERRL Neck: Positive: neck supple Cardiac: Positive: Reg Rate and Rhythm Lungs: Positive: clear to auscultation Neuro: Positive: Grossly Intact Abdomen: Positive: Soft Extremities: Absent: edema
[2016-08-30 13:17] VITALS: BP 91/61
--- NOTE | 2016-09-02 08:10 | Vascular Lab Report ---
CAROTID DUPLEX STUDY: RIGHT PSVEDV CCA PROX:96370 CCA DIST: 6221 ICA PROX: 4720 ICA MID: 6427 ICA DIST: 7530 ECA: 7615 VERT: 36 12 LEFT PSVEDV CCA PROX: 9230 CCA DIST: 8427 ICA PROX: 8029 ICA MID: 6730 ICA DIST: 8538 ECA: 9517 VERT: 50 19 REASON FOR EXAM: Carotid artery stenosis/syncope . COMMENTS ON THE RIGHT: Doppler frequency analysis is consistent with 16 to 49 percent diameter reduction of the internal carotid artery. Minimal amount of plaque is seen. The common carotid artery is patent. The external carotid artery is patent. The vertebral artery has antegrade flow. COMMENTS ON THE LEFT: Doppler frequency analysis is consistent with 16 to 49 percent diameter reduction of the internal carotid artery. Minimal amount of plaque is seen. The common carotid artery is patent. The external carotid artery is patent. The vertebral artery has antegrade flow. IMPRESSION: Less than 50% diameter reduction in the internal carotid arteries bilaterally. Consider repeat carotid artery duplex in 12 months.
== END 2016-08-30 14:30 | DRG 206 ==
LOC: ED 15:41 → 4A 22:02
PROVIDERS: ADMIT Hospitalist; ATTEND Internal Medicine
DX: M94.0 Chondrocostal junction syndrome [Tietze] (principal); F23 Brief psychotic disorder; R45.851 Suicidal ideations; I25.10 Atherosclerotic heart disease of native coronary artery without angina pectoris; E11.9 Type 2 diabetes mellitus without complications; F17.210 Nicotine dependence, cigarettes, uncomplicated; R55 Syncope and collapse; I25.5 Ischemic cardiomyopathy; E78.5 Hyperlipidemia, unspecified; Z95.1 Presence of aortocoronary bypass graft; Z95.5 Presence of coronary angioplasty implant and graft; Z86.718 Personal history of other venous thrombosis and embolism; Z79.899 Other long term (current) drug therapy; Z79.82 Long term (current) use of aspirin; Z79.01 Long term (current) use of anticoagulants; Z95.810 Presence of automatic (implantable) cardiac defibrillator
CPT/HCPCS: 36415; 70450; 71010; 71275; 78452; 80048; 82550; 82553; 82962; 84484; 85025; 85379; 85610; 85730; 93005; 93010; 93017; 93306; 93880; 96374; 96375; A9270-GY; A9502; J1170; J1650; J1815; J2270; J2405; J2785; J7030; J7040; Q9967